=== PATIENT | female | born 1960 | race Caucasian/White ===

== ENCOUNTER → 2022-06-16 | Outpatient (CLI) | payer MEDICARE ==
[~2022-06-16] MED LIST: ACET-1697 PO; ALBU8.5H2 IH; CHOL100011 PO; CYCL5TAB PO; DICL100G13 TOP; DICL50TA6 PO; DULO60CA6 PO; EXEN2VIA SQ; GABA-488 PO; HYDR25TA4 PO; KCL10CCR PO; LEVO175T2 PO; MELO-198 PO; OMEG1CAP57 PO; OXYC-272 PO; TRAM50TA2 PO
== END ==
LOC: ORTHO 14:46 → MERGE 06-21 09:34
PROVIDERS: ATTEND Orthopaedic Surgery
DX: M25.552 Pain in left hip (principal); J44.9 Chronic obstructive pulmonary disease, unspecified; E11.9 Type 2 diabetes mellitus without complications; E78.00 Pure hypercholesterolemia, unspecified; I10 Essential (primary) hypertension
CPT/HCPCS: 20610; G0463

== ENCOUNTER → 2022-11-01 | Outpatient (CLI) | payer MEDICARE | LOC: ORTHO 11:25 | PROVIDERS: ATTEND Orthopaedic Surgery | DX: M25.552 Pain in left hip (principal); J45.909 Unspecified asthma, uncomplicated; I10 Essential (primary) hypertension; E11.9 Type 2 diabetes mellitus without complications; G47.30 Sleep apnea, unspecified; G89.29 Other chronic pain | CPT/HCPCS: 20610 ==

== ENCOUNTER → 2022-12-13 | Outpatient (CLI) | payer MEDICARE | LOC: ORTHO 14:43 | PROVIDERS: ATTEND Orthopaedic Surgery | DX: M70.62 Trochanteric bursitis, left hip (principal) | CPT/HCPCS: 99213 ==